=== PATIENT | male | born 1990 | race Caucasian/White ===

== ENCOUNTER 2016-08-30 16:25 | Emergency (ER) | payer OTHER, SELFPAY ==
[2016-08-30 17:21] LABS: #Basophils 0.1 thou/uL (0.0-0.2); #Eosinphils 0.3 thou/uL (0.0-0.7); #Lymphocytes 1.6 thou/uL (1.20-3.40); #Monocytes 0.5 thou/uL (0.11-0.59); #Neutrophils 3.6 thou/uL (1.40-6.50); %Basophils 1.8 % (0.0-1.0); %Lymphocytes 26.5 % (21.0-51.0); %Monocytes 8.3 % (0.0-10.0); Hematocrit 47.8 % (42.0-52.0); Mean Platelet Volume 6.8 fL (7.4-10.4); Red Blood Cell (RBC) Count 5.69 mill/uL (4.70-6.10); White Blood Cell (WBC) Count 6.2 thou/uL (4.8-10.8)
[2016-08-30 17:23] LABS: ALT (SGPT) 20 U/L (0-55); AST (SGOT) 17 U/L (5-34); Alkaline Phosphatase 66 U/L (40-150); Anion Gap 11 mmol/L (10-20); BUN (Urea Nitrogen) 16 mg/dL (8.9-20.6); Bilirubin, Total 0.8 mg/dL (0.2-1.2); Calc. Creatinine Clearance 0 mL/min (70-130); Calcium 9.5 mg/dL (7.8-10.44); Carbon Dioxide 26 mmol/L (22-29); Chloride 107 mmol/L (98-107); Estimated GFR-MDRD 73; Globulin 2.8 g/dL (2.4-3.5); Protein, Total 7.6 g/dL (6.0-8.3)
[2016-08-30 18:18] LABS: Acetaminophen Less than 3.0 mcg/mL (10.0-30.0); Salicylate Less than 5.0 mg/dL (15.0-30.0)
[2016-08-30 19:02] LABS: Methadone Not Detected (NotDetected); Methamphetamine Not Detected (NotDetected)
--- NOTE | 2016-08-30 20:02 | PICIS ---
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 YANIQUE) Villanueva: DEYSI=JULIO CÉSAR Johnson, Ene BLEW=DO Ya Brandon JPAR=JULIO CÉSAR De Paz, Saud &a-1R&a+25V*p+0X*[id number]*c202B*c15G*c2P*p-0X&a-25V&a+1R Name: Dayton Lopes : 1990 M26 MedRec: [id number] AcctNum: [id number] Prepared: SunAug 31, 2016 08:08 by Interface Page 10 of [address] [facility] LHAL=JULIO CÉSAR [place], [place] MBOS=JULIO CÉSAR Xie, Pearl &a-1R&a+25V*p+0X*[id number]*c202B*c15G*c2P*p-0X&a-25V&a+1R Name: Dayton Lopes : 1990 M26 MedRec: [id number] AcctNum: [id number] Prepared: Melina Aug 31, 2016 08:08 by Interface Page 11 of 11 pMD MTDD
== END 2016-08-30 19:44 | disposition home or self-care (01) ==
LOC: NAV ERS 16:25
DX: F32.9 Major depressive disorder, single episode, unspecified (principal)
CPT/HCPCS: 80053; 80306; 80307; 84443; 85025; 99284